=== PATIENT | female | born 1945 | race Caucasian/White ===

== ENCOUNTER 2023-09-17 17:33 | Emergency (ER) | payer MEDICARE ==
[2023-09-17] MEDS: Potassium Chloride 10 MEQ in Premix Bag 1 BAG IV SCH (18:47)
[2023-09-17] MEDS: Magnesium Sulfate/Water 2 GM in Premix Bag 1 BAG IV SCH (18:48)
[2023-09-17] MEDS: Potassium Chloride 20 MEQ Tab.ER PO ONE (18:48)
[2023-09-17] MEDS: Sodium Chloride 0.9% 1,000 ML IV SCH (21:27)
== END 2023-09-18 00:01 | disposition home or self-care (01) ==
LOC: JD.ED 17:33
DX: E87.6 Hypokalemia (principal); Z88.8 Allergy status to other drugs, medicaments and biological substances
CPT/HCPCS: 93005; 96365; 96366; 96368; 99284; A9270; J3475; J3480; J7030; 93010; 99282

== ENCOUNTER 2024-03-23 15:58 | Inpatient (IN) | payer MEDICARE ==
[2024-03-23] MEDS ORDERED: Sodium Chloride 0.9% 10 ML Syringe FLUSH PRN (16:19)
[2024-03-23 16:45] LABS: BASOPHILS PERCENT AUTO 0.9 % (0.0-1.0); EOSINOPHILS ABSOLUTE AUTO 0.1 K/mm3 (0.0-0.4); EOSINOPHILS PERCENT AUTO 1.7 % (0.0-6.0); HEMATOCRIT 37.9 % (37.0-47.0); IMMATURE GRAN ABSOLUTE AUTO 0.01 K/mm3 (0.00-0.05); IMMATURE GRAN PERCENT AUTO 0.2 % (0.0-0.4); LYMPHOCYTES ABSOLUTE AUTO 1.3 K/mm3 (1.0-4.8); LYMPHOCYTES PERCENT AUTO 27.7 % (24.0-44.0); MEAN CORPUSCULAR HEMOGLOBIN 28.8 pg (28.0-32.0); MEAN CORPUSCULAR HGB CONC 31.7 g/dl (32.0-36.0); MEAN CORPUSCULAR VOLUME 91.1 fl (83.0-99.0); MEAN PLATELET VOLUME 9.3 fl (9.4-12.3); MONOCYTES ABSOLUTE AUTO 0.7 K/mm3 (0.0-0.8); MONOCYTES PERCENT AUTO 15.7 % (0.0-8.0); NEUTROPHILS ABSOLUTE AUTO 2.5 K/mm3 (1.8-7.7); NEUTROPHILS PERCENT AUTO 53.8 % (41.0-71.0); PLATELET COUNT,PLT 163 K/mm3 (150-400); RED BLOOD CELL COUNT 4.16 M/mm3 (4.10-5.30); WHITE BLOOD CELL COUNT,WBC 4.65 K/mm3 (3.9-11.3)
[2024-03-23 17:24] LABS: A/G RATIO 0.8 (1-2); ANION GAP 7.5 (5-15); BILIRUBIN TOTAL 0.6 mg/dL (0.2-1.0); C-REACTIVE PROTEIN 0.21 mg/dL (<0.30); CALCIUM 8.9 mg/dL (8.5-10.1); EST CRCL DRUG DOSING (CG) 35.55 mL/min; POTASSIUM,K 3.5 mEq/L (3.5-5.1)
[2024-03-23] MEDS: Furosemide 40 MG/4 ML VIAL IVPUSH ONE (17:45)
[2024-03-23 19:19] LABS: TSH 4.219 uIU/mL (0.358-3.74)
[2024-03-23] MEDS ORDERED: oxyCODONE 5 MG Tab PO PRN (20:19)
[2024-03-23] MEDS ORDERED: Acetaminophen 325 MG Tab PO PRN (20:19)
[2024-03-23] MEDS ORDERED: Albuterol/Ipratropium 3.0-0.5 MG/3 ML Neb Soln NEB PRN (20:19)
[2024-03-23] MEDS ORDERED: Ondansetron 4 MG Tab.DIS PO PRN (20:19)
[2024-03-23] MEDS ORDERED: Morphine 2 MG/ML SYRINGE IVPUSH PRN (20:19)
[2024-03-23 20:54] LABS: T4 FREE 1.35 ng/dL (0.76-1.46)
[2024-03-23] MEDS: Apixaban 5 MG Tab PO SCH (21:11)
[2024-03-23 22:38] LABS: BASE EXCESS ARTERIAL 6.9 (-2-2.0); BICARBONATE,ARTERIAL 32.2 meq/L (22.0-26.0); O2 SATURATION ARTERIAL 85.9 % (96.0-97.0); PCO2 ARTERIAL 51.6 mmHg (35.0-45.0)
[2024-03-24] MEDS ORDERED: Levothyroxine 88 MCG Tab PO SCH (06:00)
[2024-03-24 06:35] LABS: BASOPHILS PERCENT AUTO 0.7 % (0.0-1.0); EOSINOPHILS ABSOLUTE AUTO 0.1 K/mm3 (0.0-0.4); EOSINOPHILS PERCENT AUTO 2.3 % (0.0-6.0); HEMATOCRIT 36.1 % (37.0-47.0); HEMOGLOBIN 11.3 gm/dl (12.0-16.0); IMMATURE GRAN ABSOLUTE AUTO 0.01 K/mm3 (0.00-0.05); IMMATURE GRAN PERCENT AUTO 0.2 % (0.0-0.4); LYMPHOCYTES ABSOLUTE AUTO 1.4 K/mm3 (1.0-4.8); LYMPHOCYTES PERCENT AUTO 31.5 % (24.0-44.0); MEAN CORPUSCULAR HGB CONC 31.3 g/dl (32.0-36.0); MEAN CORPUSCULAR VOLUME 89.6 fl (83.0-99.0); MEAN PLATELET VOLUME 9.5 fl (9.4-12.3); MONOCYTES ABSOLUTE AUTO 0.6 K/mm3 (0.0-0.8); MONOCYTES PERCENT AUTO 14.5 % (0.0-8.0); NEUTROPHILS ABSOLUTE AUTO 2.2 K/mm3 (1.8-7.7); NEUTROPHILS PERCENT AUTO 50.8 % (41.0-71.0); PLATELET COUNT,PLT 156 K/mm3 (150-400); RED BLOOD CELL COUNT 4.03 M/mm3 (4.10-5.30); WHITE BLOOD CELL COUNT,WBC 4.28 K/mm3 (3.9-11.3)
[2024-03-24 06:40] LABS: ANION GAP 6.5 (5-15); C-REACTIVE PROTEIN 0.21 mg/dL (<0.30); CALCIUM 8.8 mg/dL (8.5-10.1); EST CRCL DRUG DOSING (CG) 35.55 mL/min; POTASSIUM,K 3.5 mEq/L (3.5-5.1)
[2024-03-24] MEDS: Insulin Lispro 100 Unit/ML 3 ML KwikPen SUBCUT SCH (07:57)
[2024-03-24] MEDS: Venlafaxine 75 MG Cap.ER PO SCH (09:03)
[2024-03-24] MEDS: Isosorbide Mononitrate 30 MG Tab.ER PO SCH (09:03)
[2024-03-24] MEDS: Aspirin 81 MG Tab.Chew PO SCH (09:03)
[2024-03-24] MEDS: Furosemide 40 MG/4 ML VIAL IVPUSH SCH (09:03)
[2024-03-24] MEDS: Rosuvastatin 10 MG Tab PO SCH (09:04)
[2024-03-24] MEDS: Levothyroxine 88 MCG Tab PO SCH (09:14)
[2024-03-25 06:00] LABS: BASOPHILS PERCENT AUTO 0.5 % (0.0-1.0); EOSINOPHILS ABSOLUTE AUTO 0.1 K/mm3 (0.0-0.4); EOSINOPHILS PERCENT AUTO 2.1 % (0.0-6.0); HEMATOCRIT 35.4 % (37.0-47.0); HEMOGLOBIN 11.4 gm/dl (12.0-16.0); IMMATURE GRAN ABSOLUTE AUTO 0.01 K/mm3 (0.00-0.05); IMMATURE GRAN PERCENT AUTO 0.2 % (0.0-0.4); LYMPHOCYTES ABSOLUTE AUTO 1.5 K/mm3 (1.0-4.8); LYMPHOCYTES PERCENT AUTO 35.5 % (24.0-44.0); MEAN CORPUSCULAR HEMOGLOBIN 28.6 pg (28.0-32.0); MEAN CORPUSCULAR HGB CONC 32.2 g/dl (32.0-36.0); MEAN CORPUSCULAR VOLUME 88.9 fl (83.0-99.0); MEAN PLATELET VOLUME 9.1 fl (9.4-12.3); MONOCYTES ABSOLUTE AUTO 0.6 K/mm3 (0.0-0.8); NEUTROPHILS ABSOLUTE AUTO 2.1 K/mm3 (1.8-7.7); NEUTROPHILS PERCENT AUTO 48.7 % (41.0-71.0); PLATELET COUNT,PLT 157 K/mm3 (150-400); RED BLOOD CELL COUNT 3.98 M/mm3 (4.10-5.30); WHITE BLOOD CELL COUNT,WBC 4.23 K/mm3 (3.9-11.3)
[2024-03-25 06:13] LABS: BUN/CREATININE RATIO 18.9 (14-18); CALCIUM 8.5 mg/dL (8.5-10.1); CREATININE 0.9 mg/dL (0.55-1.02); EST CRCL DRUG DOSING (CG) 39.5 mL/min
[2024-03-25] MEDS: Potassium Chloride 20 MEQ Tab.ER PO ONE (10:04)
[2024-03-25] MEDS: Metoprolol Succinate 50 MG Tab.ER PO SCH (14:11)
[2024-03-25] MEDS: Amoxicillin 500 MG Cap PO SCH (14:13)
[2024-03-25] MEDS: Doxycycline Monohydrate 100 MG Cap PO SCH (14:13)
== END 2024-03-25 15:14 | disposition home or self-care (01) | DRG 291 ==
LOC: JD.ED 15:58 → JD.MS 17:47
PROVIDERS: ADMIT Family Medicine; ATTEND Family Medicine
PROC: 4A033R1 Measurement of Arterial Saturation, Peripheral, Percutaneous Approach (ICD-10-PCS; principal; 2024-03-23)
DX: J96.21 Acute and chronic respiratory failure with hypoxia (principal); I11.0 Hypertensive heart disease with heart failure; I50.9 Heart failure, unspecified; I50.23 Acute on chronic systolic (congestive) heart failure; J96.01 Acute respiratory failure with hypoxia; J18.9 Pneumonia, unspecified organism; G47.33 Obstructive sleep apnea (adult) (pediatric); Z88.6 Allergy status to analgesic agent; Z88.5 Allergy status to narcotic agent; H54.7 Unspecified visual loss; E78.00 Pure hypercholesterolemia, unspecified; F32.A Depression, unspecified; E11.9 Type 2 diabetes mellitus without complications; Z79.890 Hormone replacement therapy; Z96.659 Presence of unspecified artificial knee joint; I25.10 Atherosclerotic heart disease of native coronary artery without angina pectoris; I48.0 Paroxysmal atrial fibrillation; E03.9 Hypothyroidism, unspecified; Z99.81 Dependence on supplemental oxygen; Z95.5 Presence of coronary angioplasty implant and graft; Z79.82 Long term (current) use of aspirin; Z79.899 Other long term (current) drug therapy; Z88.8 Allergy status to other drugs, medicaments and biological substances; Z79.01 Long term (current) use of anticoagulants; Z95.0 Presence of cardiac pacemaker; Z87.440 Personal history of urinary (tract) infections; Z86.73 Personal history of transient ischemic attack (TIA), and cerebral infarction without residual deficits; Z98.49 Cataract extraction status, unspecified eye; Z90.89 Acquired absence of other organs; Z98.890 Other specified postprocedural states; Z90.49 Acquired absence of other specified parts of digestive tract; Z90.710 Acquired absence of both cervix and uterus; Z90.722 Acquired absence of ovaries, bilateral; Z90.79 Acquired absence of other genital organ(s)
CPT/HCPCS: 36415; 36600; 71046; 71046-26; 80048; 80053; 82803; 82947; 83880; 84439; 84443; 84484; 85025; 86140; 93010; 93306; 94760; 94761; 96374; 99285; 99285-25; A9270-GY; J1940

== ENCOUNTER 2024-10-25 13:07 | Emergency (ER) | payer MEDICARE ==
[2024-10-25] MEDS ORDERED: Naloxone 0.4 MG/ML SDV IVPUSH PRN (13:15)
[2024-10-25] MEDS: fentaNYL 100 MCG/2 ML SDV IVPUSH ONE (13:54)
[2024-10-25] MEDS: Acetaminophen/HYDROcodone 325-5 MG Tab PO ONE (14:30)
== END 2024-10-25 16:05 | disposition home or self-care (01) ==
LOC: JD.ED 13:07
DX: S22.32XA Fracture of one rib, left side, initial encounter for closed fracture (principal); I11.0 Hypertensive heart disease with heart failure; I50.9 Heart failure, unspecified; E78.00 Pure hypercholesterolemia, unspecified; Z88.5 Allergy status to narcotic agent; Z88.8 Allergy status to other drugs, medicaments and biological substances; Z79.01 Long term (current) use of anticoagulants; Z79.82 Long term (current) use of aspirin; Z79.890 Hormone replacement therapy; E11.9 Type 2 diabetes mellitus without complications; Z86.73 Personal history of transient ischemic attack (TIA), and cerebral infarction without residual deficits; Z95.5 Presence of coronary angioplasty implant and graft; Z86.16 Personal history of COVID-19; W18.39XA Other fall on same level, initial encounter; Y93.89 Activity, other specified
CPT/HCPCS: 71250; 94667; 96374; 99284; J3010